=== PATIENT | male | born 1955 | race Caucasian/White ===

== ENCOUNTER 2017-08-10 09:40 | Outpatient (CLI) | payer BC ==
[2017-08-10 11:10] LABS: Bilirubin Negative (Negative); Blood, Urine Negative (Negative); Clarity CLEAR (Clear); Glucose, Urine (Dipstick) Negative (Negative); Leukocyte Negative (Negative); Nitrite Negative (Negative); PTT 29.2 SEC (22.9-36.1); Protein, Urine (Dipstick) Negative (Neg-Trace); Prothrombin Time 13.2 SEC (12.0-14.7); Specific Gravity, Urine 1.007 (1.002-1.036); Urobilinogen 0.2 mg/dL (0.2-1.0)
[2017-08-10 11:13] LABS: Bacteria/HPF None Seen HPF (None Seen); Hyaline Casts/LPF 0-3 HYALINE CAST LPF (0-3 Hyaline); RBC/HPF 0-3 HPF (0-3); Squamous Epithelial None Seen HPF (0-3); WBC/HPF None Seen HPF (0-3)
== END 2017-08-10 09:41 | disposition home or self-care (01) ==
LOC: LABBT 09:40
PROVIDERS: ATTEND Urology
DX: Z01.818 Encounter for other preprocedural examination (principal); N40.1 Benign prostatic hyperplasia with lower urinary tract symptoms
CPT/HCPCS: 81001; 85610; 85730; 87086

== ENCOUNTER 2017-08-16 08:27 | Outpatient (CLI) | payer BC | END 2017-08-16 08:28 | disposition home or self-care (01) | LOC: LABBT 08:27 | PROVIDERS: ATTEND Urology | DX: Z01.818 Encounter for other preprocedural examination (principal); N40.1 Benign prostatic hyperplasia with lower urinary tract symptoms | CPT/HCPCS: 86850; 86900; 86901 ==

== ENCOUNTER 2017-08-18 06:40 | Observation (INO) | payer BC ==
[2017-08-10 10:03] VITALS: BMI 27.3
[2017-08-18] MEDS ORDERED: Levofloxacin 500 mg/D5W 100 ml Premix Bag ONE (07:00)
[2017-08-18] MEDS ORDERED: Midazolam HCl 2 mg/2 ml Vial ONE (08:46)
[2017-08-18] MEDS ORDERED: Fentanyl 100 MCG/2 ML VIAL ONE ×2 (08:46→10:51)
[2017-08-18] MEDS ORDERED: Iothalamate Meglumine 60% 50 ML VIAL FS ONE (08:52)
[2017-08-18] MEDS ORDERED: B & O ONE (10:17)
[2017-08-18] MEDS ORDERED: Ondansetron HCl/PF 4 MG/2 ML Vial IVP PRN ×2 (10:27→10:41)
[2017-08-18] MEDS ORDERED: Oxybutynin 5 MG TAB PO PRN (10:27)
[2017-08-18] MEDS ORDERED: Acetaminophen 500 MG TAB PO PRN (10:27)
[2017-08-18] MEDS ORDERED: Bisacodyl 10 MG SUPP PR PRN (10:27)
[2017-08-18] MEDS ORDERED: hydrALAZINE 20 MG/ML VIAL SLOW IVP PRN (10:27)
[2017-08-18] MEDS ORDERED: Hyoscyamine Sulfate SL 0.125 mg Tablet SL PRN (10:27)
[2017-08-18] MEDS ORDERED: traMADol HCl 50 MG TAB PO PRN (10:29)
[2017-08-18] MEDS ORDERED: Famotidine 20 MG TAB PO PRN (10:30)
[2017-08-18] MEDS ORDERED: Promethazine HCl 25 MG/ML VIAL SLOW IVP PRN (10:41)
[2017-08-18] MEDS ORDERED: Promethazine HCl 25 MG/ML VIAL IM PRN (10:41)
--- NOTE | 2017-08-18 11:06 | OP ---
DATE OF PROCEDURE: 08/18/2017 SERVICE: Urology. SURGEON: Jaya Chaudhari M.D. PREOPERATIVE DIAGNOSIS: Benign prostatic hypertrophy with lower urinary tract symptoms. POSTOPERATIVE DIAGNOSIS: Benign prostatic hypertrophy with lower urinary tract symptoms. PROCEDURE PERFORMED: Transurethral resection of the prostate. INDICATIONS FOR PROCEDURE: Mr. Hung is a 62-year-old white male who has fairly severe BPH with d ifficulty urinating. He is currently on Uroxatral without complete resolution of symptoms. He is cu rrently also on testosterone replacement therapy and his symptoms have progressively been getting harleen adily worse. We discussed options including addition of other medications and risks of surgery and geovanna vo has elected to go forward with a TURP. All risks and benefits had been previously discussed and he has agreed to proceed forward. DESCRIPTION OF PROCEDURE: After identification of armband and verification of consent, patient was b rought back to the operating room where he underwent general anesthesia with an LMA. He was then francy munira in right dorsal lithotomy position and prepped and draped in usual sterile fashion. After approp riate timeout, a lubricated 26 Mosotho resectoscope sheath with visual obturator was passed through th e urethra into the bladder. The meatus did have to be dilated previously with Marion sounds up to 2 8 Mosotho to allow passage of the resectoscope sheath. The prostate was hypertrophic with a ball-valv ing median lobe which had previously been identified on cystoscopy. The bladder was unremarkable. B oth ureters were noted in the orthotopic location. These were marked proximal to the ureteral orific e and sent themselves for later identification. Resection was started at the median lobe which was r esected down. The bladder neck was then opened at 5 and 7 o'clock with relaxing incisions using the bipolar resectoscope loop. Then, circumferential resection was carried out around the prostate throu gh all the adenomatous tissue until the capsule could be identified. No capsulotomies were made. Al l the prostate tissue was removed. An extensive cautery was used to provide hemostasis. Upon comple tion, the prostate was wide open. The prostate had been resected from the bladder neck to liudmila with complete removal of the ball-valving median lobe. The ureters were reidentified and found to be unh armed in orthotopic location. The prostate chips were then evacuated using the Adaptive TCR evacuator. Fin al cystoscopy did not demonstrate any active bleeding and the prostate was wide open again with no ch ips remaining in the bladder and the bladder otherwise appears unremarkable. The resectoscope was th en removed and a 22-Mosotho three-way Anderson catheter was inserted into the bladder with ease with 30 m L of sterile water placed into the balloon. The bladder was hand irrigated with a very light pink ur ine. CBI was initiated. The patient then had a B&O suppository placed in his rectum. He was then t aken out of lithotomy, awakened and taken to PACU for recovery in stable condition. COMPLICATIONS: None. ESTIMATED BLOOD LOSS: Minimal. RETAINED TUBES AND DRAINS: A 22-Mosotho 3-way Anderson catheter on CBI. SPECIMENS: Prostate chips. DISPOSITION: The patient will be kept in the hospital overnight for hematuria monitoring and CBI. H is CBI will be held in the morning and he will be discharged home after a void trial.
[2017-08-18 11:11] LABS: Anion Gap 11 mmol/L (10-20); BUN (Urea Nitrogen) 16 mg/dL (8.4-25.7); Calc. Creatinine Clearance 93 mL/min (70-130); Calcium 8.9 mg/dL (7.8-10.44); Carbon Dioxide 28 mmol/L (23-31); Chloride 104 mmol/L (98-107); Estimated GFR-MDRD 82; Glucose 87 mg/dL (80-115); Potassium 4.8 mmol/L (3.5-5.1); Sodium 138 mmol/L (136-145)
[2017-08-18] MEDS ORDERED: Lidocaine 1% PF 5 ML VIAL ONE (12:49)
[2017-08-18] MEDS ORDERED: PROPOFOL 200 MG/20 ML VIAL ONE (12:49)
[2017-08-18] MEDS ORDERED: Ketorolac Tromethamine 30 MG/ML VIAL ONE (12:49)
[2017-08-18] MEDS: Docusate 100 MG CAP PO SCH (21:04)
[2017-08-18] MEDS: Mag-Al 1200 mg/1200 mg/30 ML UDCUP PO PRN (21:42)
[2017-08-19] MEDS: Mag-Al 1200 mg/1200 mg/30 ML UDCUP PO PRN (03:12)
[2017-08-19 05:50] LABS: #Lymphocytes 1.3 thou/uL (1.20-3.40); #Neutrophils 11.7 thou/uL (1.40-6.50); %Basophils 0.1 % (0.0-1.0); %Eosinophils 0.3 % (0.0-10.0); %Neutrophils 83.6 % (42.0-75.0); Hemoglobin 15.4 g/dL (14.0-18.0); Mean Corpuscular HGB CONC 34.7 g/dL (32.0-36.0); Mean Corpuscular Hemoglobin 33.5 pg (27.0-31.0); Mean Corpuscular Volume 96.4 fL (78.0-98.0); Mean Platelet Volume 7.3 fL (7.4-10.4); Platelet Count 200 thou/uL (130-400); RBC Distribution Width 11.1 % (11.5-14.5); White Blood Cell (WBC) Count 13.9 thou/uL (4.8-10.8)
[2017-08-19 05:57] LABS: Anion Gap 10 mmol/L (10-20); BUN (Urea Nitrogen) 15 mg/dL (8.4-25.7); Calc. Creatinine Clearance 95 mL/min (70-130); Calcium 8.4 mg/dL (7.8-10.44); Carbon Dioxide 26 mmol/L (23-31); Chloride 104 mmol/L (98-107); Estimated GFR-MDRD 84; Glucose 101 mg/dL (80-115); Sodium 136 mmol/L (136-145)
[2017-08-19] MEDS: Docusate 100 MG CAP PO SCH (08:09)
[2017-08-19] MEDS ORDERED: Lisinopril 20 MG TAB PO SCH (09:00)
[2017-08-19 12:24] VITALS: BP 128/79; TEMP 98
[2017-08-19] MEDS ORDERED: Phenazopyridine HCl 97.5 MG TABLET PO PRN (14:14)
--- NOTE | 2017-08-19 16:47 | PRG ---
DATE OF SERVICE: 08/19/2017 SUBJECTIVE: The patient states he is doing very well. He reports no pain. No bladder spasms. His CBI has been turned off this morning. He states he is feeling very good. Denies any chest pain, jamie rtness of breath or significant blood in his urine. OBJECTIVE: VITAL SIGNS: Temperature 98, pulse 79, respirations 14, blood pressure 128/79, saturation 98% on keiry m air. GENERAL: No apparent distress, communicative and alert. CARDIOVASCULAR: Regular rate and rhythm. ABDOMEN: Soft, nontender, nondistended, positive bowel sounds. GENITOURINARY: Anderson catheter in place, secured with very clear urine and light pink urine in the Fo tevin bag. EXTREMITIES: No clubbing, cyanosis or edema. LABORATORY DATA: On laboratory evaluation, a full set of labs are in the [facility] system, which I ayala ve reviewed. Of note, patient's white count is 13.9 with hemoglobin of 15.4 and creatinine is 0.92. ASSESSMENT AND PLAN: A 62-year-old white male with benign prostatic hypertrophy, status post transur ethral resection of the prostate postoperative day #1, recovery quite well. We will perform a void t rial and collect serial urine so long as he is able to void properly and has no issues with retention or significant bleeding he should be able to be discharged home. I have gone over his discharge ins tructions with him as well as his activity restrictions and I will plan to see him back later this we ek for his Aveed injection and postop appointment.
--- NOTE | 2017-08-20 00:54 | DIS ---
SHORT STAY DISCHARGE SUMMARY DATE OF ADMISSION: 08/18/2017 DATE OF DISCHARGE: 08/19/2017 ADMITTING DIAGNOSIS: Benign prostatic hypertrophy with urinary obstruction. DISCHARGE DIAGNOSIS: Benign prostatic hypertrophy with urinary obstruction PROCEDURE PERFORMED WHILE INPATIENT: Transurethral resection of the prostate. BRIEF HISTORY: Mr. Hung is a 62-year-old white male who currently sees me for testosterone admin istration for low testosterone. He also has BPH with urinary obstruction and is currently taking Uro xatral. He did wish to undergo surgery to get off medication and improve his urinary stream. Risks and benefits have been discussed. HOSPITAL COURSE: After his surgery (please see operative note for details), the patient underwent hi s surgery which was uneventful. He was kept in the hospital overnight for continuous bladder irrigat ion. He had very minimal hematuria overnight and his CBI was stopped in the morning. His urine was extremely clear with very light pink urine in the drainage bag. He underwent a void trial and was ab le to void successfully which started out as a [employer] red and progressively lightened up to a water melon color juice. He states his stream is good. He has no pain, no dysuria, no other complaints. He was deemed stable for discharge. DISCHARGE CONDITION: Good. DISCHARGE DISPOSITION: Discharge to home. FOLLOW UP: Follow up will be on Tuesday at 09:30 for Aveed administration as well as a postop chec k. DISCHARGE INSTRUCTIONS: Included in the [facility] system.
== END 2017-08-19 15:09 | disposition home or self-care (01) ==
LOC: SDC 06:40 → SURG A 11:47
PROVIDERS: ADMIT Urology; ATTEND Urology
PROC: 0VT08ZZ Resection of Prostate, Via Natural or Artificial Opening Endoscopic (ICD-10-PCS; principal; 2017-08-18)
DX: N40.1 Benign prostatic hyperplasia with lower urinary tract symptoms (principal); R39.12 Poor urinary stream; N13.8 Other obstructive and reflux uropathy; I10 Essential (primary) hypertension; Z79.899 Other long term (current) drug therapy; Z88.5 Allergy status to narcotic agent
CPT/HCPCS: 36415; 80048; 85025; 88305; 96365; 96374; 96375; G0378; J1885; J1956; J2001; J2250; J2704; J3010; Q9961

== ENCOUNTER 2019-10-11 06:36 | Day surgery (SDC) | payer BC ==
[2019-10-09 10:51] VITALS: BMI 28.1
[2019-10-11] MEDS ORDERED: Acetaminophen 500 MG TAB ONE (06:48)
[2019-10-11] MEDS ORDERED: Ketorolac Tromethamine 30 MG/ML VIAL ONE (06:48)
[2019-10-11] MEDS ORDERED: Bupivacaine 0.25% HCL 30 ML VIAL ONE (08:57)
[2019-10-11] MEDS ORDERED: Lidocaine 1% w/Epinephrine 1:100K 20 ML VIAL ONE (08:57)
[2019-10-11] MEDS ORDERED: Sodium Bicarb 50 MEQ/50 ML VIAL ONE (08:57)
[2019-10-11] MEDS ORDERED: Fentanyl 100 MCG/2 ML VIAL ONE (09:06)
[2019-10-11] MEDS ORDERED: Midazolam HCl 2 mg/2 ml Vial ONE (09:06)
[2019-10-11] MEDS ORDERED: PHENYLEPHRINE-NS 100 MCG/ML 10 ML SYRINGE ONE (12:19)
[2019-10-11] MEDS ORDERED: EPHEDRINE 25 MG/5 ML SYRINGE ONE (12:19)
[2019-10-11] MEDS ORDERED: Dexamethasone 20 MG/5 ML VIAL ONE (12:19)
[2019-10-11] MEDS ORDERED: PROPOFOL 200 MG/20 ML VIAL ONE (12:19)
[2019-10-11] MEDS ORDERED: Ondansetron PF 4 MG/2 ML Vial ONE (12:19)
--- NOTE | 2019-10-12 14:12 | OP ---
DATE OF PROCEDURE: 10/11/2019 PREOPERATIVE DIAGNOSIS: Right axillary/chest wall soft tissue tumor. POSTOPERATIVE DIAGNOSIS: Right axillary/chest wall soft tissue tumor. PROCEDURE PERFORMED: Excision of 13 cm right axillary/right chest wall soft tissue tumor. ANESTHESIA: General endotracheal. INDICATIONS: Patient is a 64-year-old white male. He has an easily visible and palpable soft tissue tumor in the upper right lateral chest wall close to the inferior axilla. I recommended removal of this under anesthesia. DESCRIPTION OF OPERATION: Informed consent was obtained. Patient was taken to the operating room, where general endotracheal anesthesia was obtained with the patient in supine position. He was placed in the left lateral decubitus position on the sanders bag device. The arm was placed anteriorly and superiorly to deflect it out of the way. The area was trimmed of hair, prepped with ChloraPrep and draped in sterile fashion. Local anesthetic was infiltrated in a field block using a mixture of 1% lidocaine with epinephrine 0.25% Marcaine. An elliptical incision was created transversely across the lesion. 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 This was carefully dissected circumferentially so as to include all of the tumor intact within the dissection. Hemostasis was maintained with electrocautery. The specimen was removed intact and passed off the field. It was 13 cm in transverse dimension. The wound was carefully inspected and irrigated. Meticulous hemostasis was obtained. The wound was closed in several layers using 3-0 Vicryl sutures to approximate the deep layers and a running subcuticular suture of 4-0 Monocryl to approximate the skin edges. Dermabond was placed externally. There were no complications. Blood loss was negligible. The patient tolerated the procedure well and was taken to recovery room in stable condition. Job ID: [id number]
== END 2019-10-11 12:55 | disposition home or self-care (01) ==
LOC: SDC 06:36
PROVIDERS: ATTEND Specialist
PROC: 0JB60ZZ Excision of Chest Subcutaneous Tissue and Fascia, Open Approach (ICD-10-PCS; principal; 2019-10-11)
DX: D17.1 Benign lipomatous neoplasm of skin and subcutaneous tissue of trunk (principal); I10 Essential (primary) hypertension; Z87.891 Personal history of nicotine dependence; Z79.82 Long term (current) use of aspirin; Z79.899 Other long term (current) drug therapy; Z88.5 Allergy status to narcotic agent
CPT/HCPCS: 88304; J0690; J1100; J1885; J2250; J2405; J2704; J3010; S0020